=== PATIENT | female | born 2000 | race African-American/Black ===

== ENCOUNTER 2024-09-23 07:18 | Emergency (ER) | payer SELFPAY ==
[2024-09-23] MEDS ORDERED: Ibuprofen 200 MG TAB ONE (07:58)
== END 2024-09-23 08:23 | disposition home or self-care (01) ==
LOC: CSHERS 07:18
DX: L02.412 Cutaneous abscess of left axilla (principal); L02.411 Cutaneous abscess of right axilla; F17.290 Nicotine dependence, other tobacco product, uncomplicated
CPT/HCPCS: 10060

== ENCOUNTER 2024-12-07 09:10 | Emergency (ER) | payer SELFPAY | END 2024-12-07 10:36 | disposition home or self-care (01) | LOC: CSHERS 09:10 | DX: J11.1 Influenza due to unidentified influenza virus with other respiratory manifestations (principal); R11.0 Nausea; F17.290 Nicotine dependence, other tobacco product, uncomplicated | CPT/HCPCS: 99283 ==